=== PATIENT | female | born 1950 | race Caucasian/White ===

== ENCOUNTER 2020-10-22 20:38 | Emergency (ER) | payer MEDICARE, OTHER ==
[~2020-10-22] VITALS: Ht 172.7 cm; Wt 68.0 kg
[2020-10-22] MEDS ORDERED: FLEXERIL PO (21:48)
[2020-10-22] MEDS ORDERED: NORCO 5-325 TA1 EAC2 PO (21:48)
[2020-10-22 22:06] VITALS: BP 183/75
--- NOTE | 2020-10-23 12:22 | EKG ---
[place] [address] ELECTROCARDIOGRAM REPORT Name: GEMINI MIRAMONTES Wendy Room: [facility]#: [id number] Admission: 10/22/20 Attend Phys: Discharge: 10/22/20 Date of : 54 Date of Service: 10/22/202115 Report #: [id number] THIS REPORT FOR: //name// [facility] ED Test Date: 2020-10-22 Test Time: 21:16:28 Pat Name: GEMINI MIRAMONTES Department: Room: Gender: F [employer]: [place] : 1950 Requested By: Blane Valdez Order Number: [id number] MD: Ranjit De La Paz Measurements Intervals [place] Rate: 66 P: 67 MT: 153 QRS: 40 QRSD: 94 T: 47 QT: 421 QTc: 442 Interpretive Statements Sinus rhythm Low voltage, precordial leads No previous ECG available for comparison Electronically Signed On 10-23-2020 12:21:56 [employer] by Ranjit De La Paz [email or web address] <ELECTRONICALLY SIGNED> By: Ranjit De La Paz MD, [facility] 10/23/20 1221 15 15 Ranjit De La Paz MD, FAC /EPI
== END 2020-10-22 22:06 | disposition home or self-care (01) ==
LOC: M.ERS 20:38
DX: M94.0 Chondrocostal junction syndrome [Tietze] (principal); Z88.1 Allergy status to other antibiotic agents